=== PATIENT | female | born 1995 | race Caucasian/White ===

== ENCOUNTER 2023-03-13 19:52 | Emergency (ER) | payer OTHER ==
[2023-03-13 20:20] VITALS: RESP 20
[2023-03-13] MEDS ORDERED: OXcarbazepine 300 MG TAB PO STA ×2 (20:54)
--- NOTE | 2023-03-13 20:56 | ED ---
Seizure HPI - General Chief Complaint: Seizure Stated Complaint: Seizure Time Seen by Provider: 03/13/23 20:42 Source: patient, RN notes reviewed, old records reviewed Mode of arrival: EMS Limitations: altered mental status - History of Present Illness Initial Comments: This is a 27-year-old female here today for seizure. Patient had seizure with history of seizures, this is patient's normal seizure, no focal issue, to change in medications. No drugs or abuse. Patient denies noncompliance.. Patient does have again seizure history and has had seizures neck since of one per day for the last few days that she has been off of her at home medication for seizures. Patient does take Trileptal. Currently no complaints MD Complaint: seizure -: hour(s) Description of Episode: loss of consciousness, tonic-clonic movement -: second(s) Witnessed: yes - by bystander Trauma: Yes Seizure History: known seizure disorder Place: home Possible Precipitating Event: none Associated Symptoms: denies other symptoms - Related Data Previous Rx's Medication Instructions Recorded Citalopram Hydrobromide [CeleXA] 30 mg PO HS@2100 #30 tab 09/30/22 OXcarbazepine [Trileptal] 300 mg PO BID@0900,1700 #60 tab 09/30/22 Paliperidone IM [Invega Sustenna] 234 mg IM ONCE #1.5 ml 09/30/22 risperiDONE [RisperDAL] 1 mg PO DAILY #30 tab 09/30/22 risperiDONE [RisperDAL] 2 mg PO DAILY@1600 #30 tab 09/30/22 OXcarbazepine [Trileptal] 300 mg PO BID #180 tablet 03/13/23 Allergies Allergy/AdvReac Type Severity Reaction Status Date / Time sertraline [From Zoloft] AdvReac Rash/Hives Verified 03/13/23 20:20 Review of Systems ROS Statement: Those systems with pertinent positive or pertinent negative responses have been documented in the HPI. ROS Other: All systems not noted in ROS Statement are negative. Past Medical History Past Medical History: Seizure Disorder Past Psychological History: Bipolar Smoking Status: Second hand smoke exposure Past Alcohol Use History: None Reported Past Drug Use History: None Reported General Exam Limitations: altered mental status General appearance: alert, in no apparent distress Head exam: Present: atraumatic, normocephalic, normal inspection Eye exam: Present: normal appearance, PERRL, EOMI. Absent: scleral icterus, conjunctival injection, periorbital swelling ENT exam: Present: normal exam, mucous membranes moist Neck exam: Present: normal inspection. Absent: tenderness, meningismus, lymphadenopathy Respiratory exam: Present: normal lung sounds bilaterally. Absent: respiratory distress, wheezes, rales, rhonchi, stridor Cardiovascular Exam: Present: regular rate, normal rhythm, normal heart sounds. Absent: systolic murmur, diastolic murmur, rubs, gallop, clicks GI/Abdominal exam: Present: soft, normal bowel sounds. Absent: distended, tenderness, guarding, rebound, rigid Extremities exam: Present: normal inspection, full ROM, normal capillary refill. Absent: tenderness, pedal edema, joint swelling, calf tenderness Back exam: Present: normal inspection Neurological exam: Present: alert, oriented X3, CN II-XII intact Psychiatric exam: Present: normal affect, normal mood Skin exam: Present: warm, dry, intact, normal color. Absent: rash Course Vital Signs 03/13/23 03/13/23 20:15 21:26 Temperature 98.2 F 98.4 F Pulse Rate 90 84 Respiratory 20 20 Rate Blood Pressure 103/61 108/72 O2 Sat by Pulse 96 97 Oximetry - Reevaluation(s) Reevaluation #1: 03/13/23 23:23 Medical records reviewed Reevaluation #2: 03/13/23 23:24 Patient symptoms are improved 03/13/23 23:24 No recurrent seizures Reevaluation #3: 03/13/23 23:24 Patient informed results questions answered Reevaluation #4: 03/13/23 23:24 Was pt. sent in by a medical professional or institution? @ -no Did you speak to anyone other than the patient for history? @ -no Did you review nursing and triage notes? @ -agree Were old charts reviewed? @ -yes Differential Diagnosis? @ -prior EKG interpreted by me (3pts min.)? @ -no X-rays interpreted by me (1pt min.)? @ -no CT interpreted by me (1pt min.)? @ -no U/S interpreted by me (1pt. min.)? @ -no What testing was considered but not performed? (CT, X-rays, U/S, labs)? Why? @ -no What meds were considered but not given? Why? @ -no Did you discuss the management of the patient with other professionals? @ -no Did you reconcile home meds? @ -no Was smoking cessation discussed for >3mins.? @ -no Was critical care preformed (if so, how long)? @ -no Were there social determinants of health that impacted care today? How? (Homelessness, low income, unemployed, alcoholism, drug addiction, transportation, low edu. Level, literacy, decrease access to med. care, group home, rehab)? @ -no Was there de-escalation of care discussed even if they declined? (Discuss DNR or withdrawal of care, Hospice)? @ -no What co-morbidities impacted this encounter? (DM, HTN, Smoking, COPD, CAD, Cancer, CVA, Hep., AIDS, mental health diagnosis, sleep apnea, morbid obesity)? @ -none Was patient admitted / discharged? @ -27 female with seizures, history of seizures, no recurrent seizure here in the emergency department restarted on Trileptal and can be discharged home Discharge Undiagnosed new problem with uncertain prognosis? @ -no Drug Therapy requiring intensive monitoring for toxicity (Heparin, Nitro, Insulin, Cardizem)? @ -no Were any procedures done? @ -no Diagnosis/symptom? @ -Recurrent seizures Acute, or Chronic, or Acute on Chronic? @ -acute Uncomplicated (without systemic symptoms) or Complicated (systemic symptoms)? @ -complicated Side effects of treatment? @ -no Exacerbation, Progression, or Severe Exacerbation] @ -no Poses a threat to life or bodily function? @ -yes if status epilepticus Reevaluation #5: 03/13/23 23:24 Differential Seizure: Recurrent seizure disorder, febrile seizure, alcohol withdrawal, stimulants, meningitis, encephalitis, intercranial hemorrhage, intracranial tumor, stroke, eclampsia, thyrotoxicosis, hypocalcemia, hyponatremia, hypernatremia, hypomagnesemia, psychogenic, this is not meant to be an all-inclusive list. Medical Decision Making - Medical Decision Making 27 female with seizures, history of seizures, no recurrent seizure here in the emergency department restarted on Trileptal and can be discharged home Disposition Clinical Impression: Seizure, Intractable seizure disorder, Recurrent seizures Disposition: ADMITTED IP TO THIS HOSP Condition: Good Instructions (If sedation given, give patient instructions): Seizure/Epilepsy Discharge Instructions & Follow-Up, Recurrent Seizures in Adults (ED) Prescriptions: OXcarbazepine [Trileptal] 300 mg PO BID #180 tablet Is patient prescribed a controlled substance at d/c from ED?: No Referrals: Alysha Raymond MD [Primary Care Provider] - 1-2 days Time of Disposition: 20:55
[2023-03-13 21:28] VITALS: BP 108/72; PULSE 84; TEMP 98.4
== END 2023-03-13 21:28 | disposition other institution (70) ==
LOC: EC 19:52
DX: G40.919 Epilepsy, unspecified, intractable, without status epilepticus (principal); Z77.22 Contact with and (suspected) exposure to environmental tobacco smoke (acute) (chronic); Z88.9 Allergy status to unspecified drugs, medicaments and biological substances
CPT/HCPCS: 99285

== ENCOUNTER 2023-05-27 23:53 | Emergency (ER) | payer OTHER ==
[2023-05-28] MEDS ORDERED: ACETAMINOPHEN TAB 500 MG TAB PO STA ×2 (02:24→02:25)
--- NOTE | 2023-05-28 02:25 | ED ---
General Adult HPI - General Chief complaint: Extremity Injury, Lower Stated complaint: Ankle injury Time Seen by Provider: 05/28/23 01:59 Source: EMS Mode of arrival: EMS Limitations: no limitations - History of Present Illness Initial comments: Patient is a 27-year-old patient who presents to the emergency department for ankle injury. Patient twisted her ankle while walking down some steps this evening. She did not fall or hit her head. She has mild pain to the outside of her ankle. No pain with ambulation. No numbness or tingling. - Related Data Previous Rx's Medication Instructions Recorded Citalopram Hydrobromide [CeleXA] 30 mg PO HS@2100 #30 tab 09/30/22 OXcarbazepine [Trileptal] 300 mg PO BID@0900,1700 #60 tab 09/30/22 Paliperidone IM [Invega Sustenna] 234 mg IM ONCE #1.5 ml 09/30/22 risperiDONE [RisperDAL] 1 mg PO DAILY #30 tab 09/30/22 risperiDONE [RisperDAL] 2 mg PO DAILY@1600 #30 tab 09/30/22 OXcarbazepine [Trileptal] 300 mg PO BID #180 tablet 03/13/23 Ibuprofen [Motrin] 600 mg PO Q6HR PRN #30 tab 05/28/23 Allergies Allergy/AdvReac Type Severity Reaction Status Date / Time sertraline [From Zoloft] AdvReac Rash/Hives Verified 05/28/23 00:10 Review of Systems ROS Statement: Those systems with pertinent positive or pertinent negative responses have been documented in the HPI. ROS Other: All systems not noted in ROS Statement are negative. Past Medical History Past Medical History: Seizure Disorder History of Any Multi-Drug Resistant Organisms: None Reported Past Surgical History: No Surgical Hx Reported Past Psychological History: Bipolar Smoking Status: Second hand smoke exposure Past Alcohol Use History: None Reported Past Drug Use History: None Reported General Exam Limitations: no limitations General appearance: alert Eye exam: Present: normal appearance, PERRL, EOMI. Absent: scleral icterus, conjunctival injection, periorbital swelling Respiratory exam: Present: normal lung sounds bilaterally. Absent: respiratory distress, wheezes, rales, rhonchi, stridor Cardiovascular Exam: Present: regular rate, normal rhythm, normal heart sounds. Absent: systolic murmur, diastolic murmur, rubs, gallop, clicks Extremities exam: Present: other (Swelling lateral right ankle with tenderness full range of motion no pain with range of motion. Neurovascularly intact) Neurological exam: Present: alert Course Vital Signs 05/28/23 05/28/23 00:08 03:01 Temperature 97.8 F 98.2 F Pulse Rate 82 85 Respiratory 18 17 Rate Blood Pressure 127/76 102/70 O2 Sat by Pulse 98 Oximetry Medical Decision Making - Medical Decision Making Was pt. sent in by a medical professional or institution (STEFANIE Gage, MIXING PICKER TENDER, urgent care, hospital, or [facility]...) When possible be specific @ -No Did you speak to anyone other than the patient for history (EMS, parent, family, police, friend...)? What history was obtained from this source @ -No Did you review nursing and triage notes (agree or disagree)? Why? @ -I reviewed and agree with nursing and triage notes Were old charts reviewed (outside hosp., previous admission, EMS record, old EKG, old radiological studies, urgent care reports/EKG's, [facility] records)? Report findings @ -No old charts were reviewed Differential Diagnosis (chest pain, altered mental status, abdominal pain women, abdominal pain men, vaginal bleeding, weakness, fever, dyspnea, syncope, headache, dizziness, GI bleed, back pain, seizure, CVA, palpatations, mental health)? @ -fracture, dislocation, sprain EKG interpreted by me (3pts min.). @ -As above X-rays interpreted by me (1pt min.). @ -None done CT interpreted by me (1pt min.). @ -None done U/S interpreted by me (1pt. min.). @ -None done What testing was considered but not performed or refused? (CT, X-rays, U/S, labs)? Why? @ -None What meds were considered but not given or refused? Why? @Patient declined crutches states she has not had pain with ambulation Did you discuss the management of the patient with other professionals (professionals i.e. STEFANIE Gage, MIXING PICKER TENDER, lab, RT, psych nurse, social worker masters, station gateman, teacher, textile technical officer, case management coordinator)? Give summary @ -No Was smoking cessation discussed for >3mins.? @ -No Was critical care preformed (if so, how long)? @ -No Were there social determinants of health that impacted care today? How? (Homelessness, low income, unemployed, alcoholism, drug addiction, transportation, low edu. Level, literacy, decrease access to med. care, shelter, rehab)? @ -No Was there de-escalation of care discussed even if they declined (Discuss DNR or withdrawal of care, Hospice)? DNR status @ -No What co-morbidities impacted this encounter? (DM, HTN, Smoking, COPD, CAD, Cancer, CVA, ARF, Chemo, Hep., AIDS, mental health diagnosis, sleep apnea, morbid obesity)? @ -None Was patient admitted / discharged? Hospital course, mention meds given and route, prescriptions, significant lab abnormalities, going to OR and other pertinent info. @ -27-year-old presents at the right ankle injury. X-ray interpreted by myself shows no acute fracture dislocation. Patient placed in splint for ankle sprain discussed sprain care in detail issue. She is discharged with pain management and will follow up with her primary care provider. Undiagnosed new problem with uncertain prognosis? @ -No Drug Therapy requiring intensive monitoring for toxicity (Heparin, Nitro, Insulin, Cardizem)? @ -No Were any procedures done? @ -No Diagnosis/symptom? @ Right ankle sprain Acute, or Chronic, or Acute on Chronic? @ Acute Uncomplicated (without systemic symptoms) or Complicated (systemic symptoms)? @ -Uncomplicated Side effects of treatment? @ -No Exacerbation, Progression, or Severe Exacerbation? @ -No Poses a threat to life or bodily function? How? (Chest pain, [place], [place], pneumonia, PE, COPD, DKA, ARF, appy, cholecystitis, CVA, Diverticulitis, Homicidal, Suicidal, threat to staff... and all critical care pts) @ -No Ck Gamez is my attending Disposition Clinical Impression: Right ankle sprain Disposition: HOME SELF-CARE Condition: Good Instructions (If sedation given, give patient instructions): Ankle Sprain (ED) Additional Instructions: Rest and elevate the joint as much as possible. Ice the injury for the next 24- 48 hours. If symptoms continue after, apply warm compress. Take Tylenol or Motrin as needed for pain. Keep splint on until resolution of pain. Follow-up with primary care provider in 1 to 2 days. Return to the emergency department if you experience new, concerning, or worsening symptoms. Prescriptions: Ibuprofen [Motrin] 600 mg PO Q6HR PRN #30 tab PRN Reason: Pain Is patient prescribed a controlled substance at d/c from ED?: No Referrals: Alysha Raymond MD [Primary Care Provider] - 1-2 days
[2023-05-28 03:08] VITALS: BP 102/70; PULSE 85; RESP 17; TEMP 98.2
--- NOTE | 2023-05-28 04:07 | XR ---
EXAM: XR Right Ankle Complete, 3 or More Views CLINICAL HISTORY: ITS.REASON XR Reason: pain TECHNIQUE: Frontal, lateral and oblique views of the right ankle. COMPARISON: No relevant prior studies available. IMPRESSION: No acute fracture. No grossly evident malalignment. Marked soft tissue edema particularly laterally.
== END 2023-05-28 03:04 | disposition home or self-care (01) ==
LOC: EC 23:53
DX: S93.401A Sprain of unspecified ligament of right ankle, initial encounter (principal); F31.9 Bipolar disorder, unspecified; Z77.22 Contact with and (suspected) exposure to environmental tobacco smoke (acute) (chronic); Z79.899 Other long term (current) drug therapy; Z88.5 Allergy status to narcotic agent; X50.1XXA Overexertion from prolonged static or awkward postures, initial encounter; Y93.01 Activity, walking, marching and hiking
CPT/HCPCS: 73610; 99284; L4350

== ENCOUNTER 2023-10-01 21:53 | Emergency (ER) | payer OTHER ==
[2023-10-01] MEDS ORDERED: SODIUM CHLORIDE 0.9% 1,000 ML IV ONE (22:10)
[2023-10-01 22:20] VITALS: RESP 16
--- NOTE | 2023-10-01 22:23 | ED ---
Seizure HPI - General Chief Complaint: Seizure Stated Complaint: Seizure Source: patient, EMS Mode of arrival: EMS - History of Present Illness Initial Comments: 28-year-old female presents the emergency department after having a seizure at home. She does have a history of seizure disorder and is on antiepileptics. She is 6 months . Reports that she has not been taking her seizure medications. She has had several seizures today which caused her to bite her tongue. States that she did not take her seizure medications this evening because her tongue was hurting. She states that her neurologist know she is . She denies any abdominal cramping or bleeding. She was agitated and combative at the house. She was refusing transfer and stated that she did not want to come to the hospital. She still seemed confused and therefore EMS was able to transport the patient. She arrives alert and oriented x 3 and refusing any blood work. Refusing to answer any questions. - Related Data Previous Rx's Medication Instructions Recorded Citalopram Hydrobromide [CeleXA] 30 mg PO HS@2100 #30 tab 09/30/22 OXcarbazepine [Trileptal] 300 mg PO BID@0900,1700 #60 tab 09/30/22 Paliperidone IM [Invega Sustenna] 234 mg IM ONCE #1.5 ml 09/30/22 risperiDONE [RisperDAL] 1 mg PO DAILY #30 tab 09/30/22 risperiDONE [RisperDAL] 2 mg PO DAILY@1600 #30 tab 09/30/22 OXcarbazepine [Trileptal] 300 mg PO BID #180 tablet 03/13/23 Ibuprofen [Motrin] 600 mg PO Q6HR PRN #30 tab 05/28/23 Allergies Allergy/AdvReac Type Severity Reaction Status Date / Time sertraline [From Zoloft] AdvReac Rash/Hives Verified 05/28/23 00:10 Review of Systems ROS Statement: Those systems with pertinent positive or pertinent negative responses have been documented in the HPI. ROS Other: All systems not noted in ROS Statement are negative. Past Medical History Past Medical History: Seizure Disorder History of Any Multi-Drug Resistant Organisms: None Reported Past Surgical History: No Surgical Hx Reported Past Psychological History: Bipolar Smoking Status: Second hand smoke exposure Past Alcohol Use History: None Reported Past Drug Use History: None Reported General Exam General appearance: alert, in no apparent distress Head exam: Present: atraumatic, normocephalic, normal inspection Eye exam: Present: normal appearance, PERRL, EOMI. Absent: scleral icterus, conjunctival injection, periorbital swelling ENT exam: Present: normal exam, mucous membranes moist Neck exam: Present: normal inspection. Absent: tenderness, meningismus, lymphadenopathy Respiratory exam: Present: normal lung sounds bilaterally. Absent: respiratory distress, wheezes, rales, rhonchi, stridor Cardiovascular Exam: Present: regular rate, normal rhythm, normal heart sounds. Absent: systolic murmur, diastolic murmur, rubs, gallop, clicks GI/Abdominal exam: Present: soft, normal bowel sounds, other (Gravid). Absent: distended, tenderness, guarding, rebound, rigid Extremities exam: Present: normal inspection, full ROM, normal capillary refill. Absent: tenderness, pedal edema, joint swelling, calf tenderness Back exam: Present: normal inspection Neurological exam: Present: alert, oriented X3, CN II-XII intact Psychiatric exam: Present: normal affect, normal mood Skin exam: Present: warm, dry, intact, normal color. Absent: rash Course Vital Signs 10/01/23 21:55 Respiratory 16 Rate Medical Decision Making - Medical Decision Making Was pt. sent in by a medical professional or institution (STEFANIE Gage, BUSINESS PROCESS ENGINEER, urgent care, hospital, or alf...) When possible be specific @ -No Did you speak to anyone other than the patient for history (EMS, parent, family, police, friend...)? What history was obtained from this source @ -EMS Did you review nursing and triage notes (agree or disagree)? Why? @ -I reviewed and agree with nursing and triage notes Were old charts reviewed (outside hosp., previous admission, EMS record, old EKG, old radiological studies, urgent care reports/EKG's, alf records)? Report findings @ -No old charts were reviewed Differential Diagnosis (chest pain, altered mental status, abdominal pain women, abdominal pain men, vaginal bleeding, weakness, fever, dyspnea, syncope, hea dache, dizziness, GI bleed, back pain, seizure, CVA, palpatations, mental health, musculoskeletal)? @ -Differential Seizure: Recurrent seizure disorder, febrile seizure, alcohol withdrawal, stimulants, meningitis, encephalitis, intercranial hemorrhage, intracranial tumor, stroke, eclampsia, thyrotoxicosis, hypocalcemia, hyponatremia, hypernatremia, hypomagnesemia, psychogenic, this is not meant to be an all-inclusive list. EKG interpreted by me (3pts min.). @ -As above X-rays interpreted by me (1pt min.). @ -None done CT interpreted by me (1pt min.). @ -None done U/S interpreted by me (1pt. min.). @ -None done What testing was considered but not performed or refused? (CT, X-rays, U/S, labs)? Why? @ -Laboratory studies and urine however patient refused. Patient is awake, alert and oriented x 3. She is no longer postictal and able to refuse these tests What meds were considered but not given or refused? Why? @ -Antiseizure medications Did you discuss the management of the patient with other professionals (professionals i.e. , PA, BUSINESS PROCESS ENGINEER, lab, RT, psych nurse, clinical social work aide, desktop technician, teacher, sports development officer, spring encaser)? Give summary @ -CPS as I am concerned about the patient's unborn child Was smoking cessation discussed for >3mins.? @ -No Was critical care preformed (if so, how long)? @ -No Were there social determinants of health that impacted care today? How? (H omelessness, low income, unemployed, alcoholism, drug addiction, transportation, low edu. Level, literacy, decrease access to med. care, detention, rehab)? @ -Low literacy as patient does not seem to understand the importance of the seizure medications in Was there de-escalation of care discussed even if they declined (Discuss DNR or withdrawal of care, Hospice)? DNR status @ -No What co-morbidities impacted this encounter? (DM, HTN, Smoking, COPD, CAD, Cancer, CVA, ARF, Chemo, Hep., AIDS, mental health diagnosis, sleep apnea, morbid obesity)? @ -Seizure disorder Was patient admitted / discharged? Hospital course, mention meds given and route, prescriptions, significant lab abnormalities, going to OR and other pertinent info. @ -Discharged AGAINST MEDICAL ADVICE. Patient presents alert and oriented x 3. She is out of her postictal phase. She admits that she has not been taking her seizure medications. Patient is refusing all blood work and IV had been taken out which was placed by EMS. I informed the patient of the importance of needing her seizure medications especially while . Informed her of the severe risks of having continued seizures while and the effects of the unborn baby. Patient understood this however continued to refuse any further testing and wanted to leave. I do not feel as if I can force the testing upon the patient however I do feel that it is important to fill out a 3200 form as I am concerned about the decisions that the mother is making. The nurse does fill out the paperwork. The patient is allowed to leave however she is notified that she is leaving AGAINST MEDICAL ADVICE. This could lead to permanent disability and even . Patient understood however still made the decision to leave Undiagnosed new problem with uncertain prognosis? @ -Yes Drug Therapy requiring intensive monitoring for toxicity (Heparin, Nitro, Insulin, Cardizem)? @ -No Were any procedures done? @ -No Diagnosis/symptom? @ -Acute breakthrough seizure, history of seizure disorder, medical noncompliance, -second versus third trimester Acute, or Chronic, or Acute on Chronic? @ -Acute Uncomplicated (without systemic symptoms) or Complicated (systemic symptoms)? @ -Complicated Side effects of treatment? @ -No Exacerbation, Progression, or Severe Exacerbation? @ -No Poses a threat to life or bodily function? How? (Chest pain, [place], [place], pneumonia, PE, COPD, DKA, ARF, appy, cholecystitis, CVA, Diverticulitis, Homicidal, Suicidal, threat to staff... and all critical care pts) @Yes the patient's decision to not take her antiepileptics could have poor outcome for her and her child Disposition Clinical Impression: Seizure, Second trimester Disposition: LEFT AGAINST MEDICAL ADVICE Condition: Undetermined Instructions (If sedation given, give patient instructions): Recurrent Seizures in Adults (ED) Additional Instructions: Take your seizure medications. See your neurologist. You are leaving against medical advice Is patient prescribed a controlled substance at d/c from ED?: No Referrals: Kenny Feng DO [Primary Care Provider] - 1-2 days Time of Disposition: 22:22
== END 2023-10-01 23:27 | disposition left against medical advice (07) ==
LOC: EC 21:53
DX: O99.352 Diseases of the nervous system complicating pregnancy, second trimester (principal); G40.909 Epilepsy, unspecified, not intractable, without status epilepticus; Z77.22 Contact with and (suspected) exposure to environmental tobacco smoke (acute) (chronic); Z88.8 Allergy status to other drugs, medicaments and biological substances; Z3A.00 Weeks of gestation of pregnancy not specified; Z53.29 Procedure and treatment not carried out because of patient's decision for other reasons
CPT/HCPCS: 99283

== ENCOUNTER → 2023-10-07 | Outpatient (CLI) | payer OTHER ==
--- NOTE | 2023-10-07 22:00 | US ---
EXAMINATION TYPE: US OB anatomy transabd DATE OF EXAM: 10/07/2023 COMPARISON: NONE CLINICAL INDICATION: Female, 28 years old with history of Z34.90 ENCNTR FOR SUPRVSN OF NORMAL PREGNAN CY, UNS; TECHNIQUE: Transabdominal (TA) EXAM MEASUREMENTS: GESTATIONAL AGE / DATING Physician Established: (Patient does not know EDC: Dates by LMP: (Patient does not know EDC: Dates by First Scan: (This is first scan ) EDC: Dates by Current Scan for: (25 weeks/2 days) EDC: 01/18/2024 SURVEY IUP: Single PLACENTA: Posterior PREVIA: No previa PETER: 15.15 cm Normal CERVICAL LENGTH (transabdominal: norm > 3.0cm): 5.1 cm BIOMETRY PRESENTATION: Vertex LIE: Longitudinal BPD: 6.33 cm 25 weeks / 4 days HC: 23.68 cm 25 weeks / 5 days AC: 21.76 cm 26 weeks / 2 days FL: 4.58 cm 25 weeks / 1 days ESTIMATED WEIGHT IN GRAMS: 852 grams ESTIMATED WEIGHT IN LBS/OZ: 1 lbs. 14 oz. WEIGHT PERCENTAGE BASED ON ESTABLISHED DATE: NA HC/AC: 1.09 Normal FL/AC: 21.07 Normal HEART RATE: 145 bpm RHYTHM: Normal ANATOMY SEEN (within normal limits): Lateral Vent (< 1 cm) 0.59 cm Cisterna Magna (< 1.1 cm) 0.42 cm Nuchal Fold (< 0.6 cm) 0.40 cm Cerebellum (varies with age) 2.83 cm Choroid Plexus (bilateral) Midline Falx Cavus Septi Pellucidi Stomach Nose / Lips Diaphragm Kidneys (bilateral) Bladder Three Vessel Cord Longitudinal Spine Transverse Spine Arms (bilateral) Legs (bilateral) ANATOMY NOT WELL SEEN (due to position and crowded structures): Four Chamber Heart Outflow tracts: LVOT/RVOT Situs Cord Insert IMPRESSION: 1. Single live intrauterine with average gestational age of 25 weeks 2 days by current ultr asound biometry. LMP and estimated gestational age not known by the patient. 2. A few of the structures on the survey could not be adequately imaged due to positionin g and crowding of structures including: Four-chamber heart, situs, LVOT/RVOT, and cord insertion. The remaining structures appear normal. If desired, a rescan can be scheduled in 1 to 2 weeks to attempt better visualization of this missed anatomy.
== END | disposition home or self-care (01) ==
LOC: RADUSWWP 12:42
PROVIDERS: ATTEND Obstetrics & Gynecology
DX: Z34.92 Encounter for supervision of normal pregnancy, unspecified, second trimester (principal); Z3A.36 36 weeks gestation of pregnancy
CPT/HCPCS: 76811

== ENCOUNTER 2023-11-13 04:52 | Emergency (ER) | payer OTHER ==
--- NOTE | 2023-11-13 05:32 | ED ---
General Adult HPI - General Chief complaint: Seizure Stated complaint: Dizziness possible seizure 30 weeks Time Seen by Provider: 11/13/23 05:18 Source: patient Mode of arrival: wheelchair Limitations: no limitations - History of Present Illness Initial comments: Chest is a 28-year-old female currently 30 weeks . She has a history of seizure disorder for which she is prescribed Trileptal. She reports that she was not taking the medication for a while recently she started taking again a couple days ago she missed a couple days or couple doses but she has been trying to be compliant for the past couple of days. She reports she has had 8 seizures in the past 24 hours. Patient states that she has frequent seizures but thought she should get herself and the baby checked out today. - Related Data Previous Rx's Medication Instructions Recorded Citalopram Hydrobromide [CeleXA] 30 mg PO HS@2100 #30 tab 09/30/22 OXcarbazepine [Trileptal] 300 mg PO BID@0900,1700 #60 tab 09/30/22 Paliperidone IM [Invega Sustenna] 234 mg IM ONCE #1.5 ml 09/30/22 risperiDONE [RisperDAL] 1 mg PO DAILY #30 tab 09/30/22 risperiDONE [RisperDAL] 2 mg PO DAILY@1600 #30 tab 09/30/22 OXcarbazepine [Trileptal] 300 mg PO BID #180 tablet 03/13/23 Ibuprofen [Motrin] 600 mg PO Q6HR PRN #30 tab 05/28/23 Allergies Allergy/AdvReac Type Severity Reaction Status Date / Time sertraline [From Zoloft] AdvReac Rash/Hives Verified 11/13/23 05:15 Review of Systems ROS Statement: Those systems with pertinent positive or pertinent negative responses have been documented in the HPI. ROS Other: All systems not noted in ROS Statement are negative. Past Medical History Past Medical History: Seizure Disorder History of Any Multi-Drug Resistant Organisms: None Reported Past Surgical History: No Surgical Hx Reported Past Psychological History: Bipolar Smoking Status: Second hand smoke exposure Past Alcohol Use History: None Reported Past Drug Use History: None Reported General Exam - General Exam Comments Initial Comments: Physical Exam GENERAL: Patient is well-developed and well-nourished. Patient is nontoxic and well-hydrated and is in no distress. HENT: Normocephalic, Atraumatic. EYES: PERRL, EOMI PULMONARY: Unlabored respirations. CARDIOVASCULAR: Tachycardic regular Warm and well perfused extremities ABDOMEN: Gravid SKIN: Pale : Deferred NEUROLOGIC: Alert and oriented Normal speech MUSCULOSKELETAL: Moving all extremities with no apparent injury PSYCHIATRIC: No SI/HI Limitations: no limitations Course Vital Signs 11/13/23 11/13/23 05:11 05:42 Temperature 98 F Pulse Rate 136 H 129 H Respiratory 22 24 Rate Blood Pressure 127/80 110/69 O2 Sat by Pulse 97 100 Oximetry Medical Decision Making - Medical Decision Making Was pt. sent in by a medical professional or institution (, PA, BOOM TRUCK DRIVER, urgent care, hospital, or [facility]...) When possible be specific @ -No Did you speak to anyone other than the patient for history (EMS, parent, family, police, friend...)? What history was obtained from this source @ -Patient's significant other Did you review nursing and triage notes (agree or disagree)? Why? @ -I reviewed and agree with nursing and triage notes Were old charts reviewed (outside hosp., previous admission, EMS record, old EKG, old radiological studies, urgent care reports/EKG's, [facility] records)? Report findings @ -Previous ER visits were reviewed Differential Diagnosis (chest pain, altered mental status, abdominal pain women, abdominal pain men, vaginal bleeding, weakness, fever, dyspnea, syncope, headache, dizziness, GI bleed, back pain, seizure, CVA, palpatations, mental health)? @ -Differential Seizure: Recurrent seizure disorder, febrile seizure, alcohol withdrawal, stimulants, meningitis, encephalitis, intercranial hemorrhage, intracranial tumor, stroke, eclampsia, thyrotoxicosis, hypocalcemia, hyponatremia, hypernatremia, hypomagnesemia, psychogenic, this is not meant to be an all-inclusive list. EKG interpreted by me (3pts min.). @ -As above X-rays interpreted by me (1pt min.). @ -None done CT interpreted by me (1pt min.). @ -None done U/S interpreted by me (1pt. min.). @ -None done What testing was considered but not performed or refused? (CT, X-rays, U/S, labs)? Why? @ -None What meds were considered but not given or refused? Why? @ -None Did you discuss the management of the patient with other professionals (professionals i.e. DrLydia, PA, BOOM TRUCK DRIVER, lab, RT, psych nurse, social professionals, actuarial director, teacher, inshore undersea warfare officer, pillowcase maker)? Give summary @ -Discussed with on-call OB Dr. Knowles Was smoking cessation discussed for >3mins.? @ -No Was critical care preformed (if so, how long)? @ -No Were there social determinants of health that impacted care today? How? (Homelessness, low income, unemployed, alcoholism, drug addiction, transportation, low edu. Level, literacy, decrease access to med. care, [facility], rehab)? @ -Low education level, low literacy Was there de-escalation of care discussed even if they declined (Discuss DNR or withdrawal of care, Hospice)? DNR status @ -No What co-morbidities impacted this encounter? (DM, HTN, Smoking, COPD, CAD, Cancer, CVA, ARF, Chemo, Hep., AIDS, mental health diagnosis, sleep apnea, morbid obesity)? @ -Seizure disorder Was patient admitted / discharged? Hospital course, mention meds given and route, prescriptions, significant lab abnormalities, going to OR and other pertinent info. @Discharged Patient was seen and evaluated. Patient with known seizure disorder noncompliant with antiepileptics had multiple seizures today. Is awake alert oriented not postictal upon arrival. Labs were obtained patient is mildly hypokalemic no other significant abnormalities were noted. Care was discussed with on-call OB who recommended NST bedside NST was performed and is normal therefore patient is stable for discharge home continued outpatient follow-up with her high worker and her neurologist. Undiagnosed new problem with uncertain prognosis? @ -No Drug Therapy requiring intensive monitoring for toxicity (Heparin, Nitro, Insulin, Cardizem)? @ -No Were any procedures done? @ -No Diagnosis/symptom? @ -Seizure Acute, or Chronic, or Acute on Chronic? @ -Default Uncomplicated (without systemic symptoms) or Complicated (systemic symptoms)? @ -Complicated Side effects of treatment? @ -No Exacerbation, Progression, or Severe Exacerbation? @ -No Poses a threat to life or bodily function? How? (Chest pain, USA, DC, pneumonia, PE, COPD, DKA, ARF, appy, cholecystitis, CVA, Diverticulitis, Homicidal, Suicidal, threat to staff... and all critical care pts) @ -Yes Diagnosis/symptom? @ -Third trimester Acute, or Chronic, or Acute on Chronic? @ -Default Uncomplicated (without systemic symptoms) or Complicated (systemic symptoms)? @ -Default Side effects of treatment? @ -None Exacerbation, Progression, or Severe Exacerbation] @ -No Poses a threat to life or bodily function? @ -No - Lab Data Result diagrams: 11/13/23 05:49 11/13/23 05:49 Lab Results 11/13/23 11/13/23 Range/Units 05:49 05:49 WBC 8.5 (3.8-10.6) k/uL RBC 4.13 (3.80-5.40) m/uL Hgb 9.1 L (11.4-16.0) gm/dL Hct 28.8 L (34.0-46.0) % MCV 69.9 L (80.0-100.0) fL MCH 22.0 L (25.0-35.0) pg MCHC 31.5 (31.0-37.0) g/dL RDW 16.2 H (11.5-15.5) % Plt Count 240 (150-450) k/uL MPV 8.7 Neutrophils % 72 % Lymphocytes % 21 % Monocytes % 5 % Eosinophils % 1 % Basophils % 0 % Neutrophils # 6.1 (1.3-7.7) k/uL Lymphocytes # 1.8 (1.0-4.8) k/uL Monocytes # 0.4 (0-1.0) k/uL Eosinophils # 0.1 (0-0.7) k/uL Basophils # 0.0 (0-0.2) k/uL Hypochromasia Moderate Poikilocytosis Slight Anisocytosis Slight Microcytosis Marked Sodium 136 L (137-145) mmol/L Potassium 3.3 L (3.5-5.1) mmol/L Chloride 110 H (98-107) mmol/L Carbon Dioxide 19 L (22-30) mmol/L Anion Gap 7 mmol/L BUN 8 (7-17) mg/dL Creatinine 0.45 L (0.52-1.04) mg/dL Est GFR (CKD-EPI)AfAm >90 (>60 ml/min/1.73 sqM) Est GFR (CKD-EPI)NonAf >90 (>60 ml/min/1.73 sqM) Glucose 113 H (74-99) mg/dL Calcium 9.0 (8.4-10.2) mg/dL Magnesium 1.6 (1.6-2.3) mg/dL Total Bilirubin 0.7 (0.2-1.3) mg/dL AST 20 (14-36) U/L ALT 15 (4-34) U/L Alkaline Phosphatase 203 H (38-126) U/L Total Protein 6.0 L (6.3-8.2) g/dL Albumin 3.2 L (3.5-5.0) g/dL Disposition Clinical Impression: Seizure Disposition: HOME SELF-CARE Condition: Stable Instructions (If sedation given, give patient instructions): Recurrent Seizures in Adults (ED) Additional Instructions: Contact your OB and your neurologist to discuss the frequency of seizures Is patient prescribed a controlled substance at d/c from ED?: No Referrals: Alysha Raymond MD [Primary Care Provider] - 1-2 days
[2023-11-13 06:03] LABS: Anisocytosis Slight; Basophils % (A) 0 %; Eosinophils # (A) 0.1 k/uL (0-0.7); Eosinophils % (A) 1 %; HCT 28.8 % (34.0-46.0); HGB 9.1 gm/dL (11.4-16.0); Hypochromasia Moderate; Lymphocytes # (A) 1.8 k/uL (1.0-4.8); Lymphocytes % (A) 21 %; MCHC 31.5 g/dL (31.0-37.0); MCV 69.9 fL (80.0-100.0); Mean Platelet Volume 8.7; Microcytosis Marked; Monocytes # (A) 0.4 k/uL (0-1.0); Monocytes % (A) 5 %; Neutrophils # (A) 6.1 k/uL (1.3-7.7); Neutrophils % (A) 72 %; Platelet Count 240 k/uL (150-450); Poikilocytosis Slight; RBC 4.13 m/uL (3.80-5.40); RDW 16.2 % (11.5-15.5); WBC 8.5 k/uL (3.8-10.6)
[2023-11-13 06:19] LABS: ALT 15 U/L (4-34); AST 20 U/L (14-36); African American GFR (CKD) >90 (>60 ml/min/1.73 sqM); Albumin 3.2 g/dL (3.5-5.0); Alkaline Phosphatase 203 U/L (38-126); Anion Gap 7 mmol/L; Blood Urea Nitrogen 8 mg/dL (7-17); Carbon Dioxide 19 mmol/L (22-30); Chloride 110 mmol/L (98-107); Glucose 113 mg/dL (74-99); Magnesium 1.6 mg/dL (1.6-2.3); Non-African American GFR(CKD) >90 (>60 ml/min/1.73 sqM); Potassium 3.3 mmol/L (3.5-5.1); Sodium 136 mmol/L (137-145); Total Bilirubin 0.7 mg/dL (0.2-1.3)
[2023-11-13] MEDS: POTASSIUM CHLORIDE ER 20 MEQ TAB.ER PO STA (07:30)
[2023-11-13 07:41] VITALS: BP 118/79; PULSE 108; RESP 18; TEMP 98.1
== END 2023-11-13 07:36 | disposition home or self-care (01) ==
LOC: EC 04:52
DX: O99.353 Diseases of the nervous system complicating pregnancy, third trimester (principal); G40.909 Epilepsy, unspecified, not intractable, without status epilepticus; Z3A.30 30 weeks gestation of pregnancy; Z77.22 Contact with and (suspected) exposure to environmental tobacco smoke (acute) (chronic); Z88.8 Allergy status to other drugs, medicaments and biological substances
CPT/HCPCS: 36415; 80053; 83735; 85025; 99284

== ENCOUNTER 2025-01-15 02:55 | Emergency (ER) | payer OTHER ==
[2025-01-15 03:01] VITALS: BP 139/69; PULSE 146; RESP 18
--- NOTE | 2025-01-15 03:28 | ED ---
Seizure HPI - General Chief Complaint: Seizure Stated Complaint: Seizure Time Seen by Provider: 01/15/25 03:00 Source: EMS Mode of arrival: EMS Limitations: no limitations - History of Present Illness Initial Comments: 29-year-old female presents to the emergency department after 2 seizures at home. Patient has history of seizure disorder. EMS provide history. They state that the patient has history of seizure disorder and they are unsure if she is compliant with her seizure medications. She has a history of multiple breakthrough seizures. She is currently and in her third trimester. She must see a high lighter due to her breakthrough seizures. EMS bring in a bottle of Trileptal for which they state the patient is supposed to be taking however the medication several years ago and the bottle was still full. No family is at bedside to provide any history. EMS states that the patient typically refuses transport to the hospital. They state that the patient's family rarely ever calls for her seizures but because she had 2 of them so close the nature even after she was administered her rescue medication, they decided to have the patient transferred to the hospital. - Related Data Previous Rx's Medication Instructions Recorded Citalopram Hydrobromide [CeleXA] 30 mg PO HS@2100 #30 tab 09/30/22 OXcarbazepine [Trileptal] 300 mg PO BID@0900,1700 #60 tab 09/30/22 Paliperidone IM [Invega Sustenna] 234 mg IM ONCE #1.5 ml 09/30/22 risperiDONE [RisperDAL] 1 mg PO DAILY #30 tab 09/30/22 risperiDONE [RisperDAL] 2 mg PO DAILY@1600 #30 tab 09/30/22 OXcarbazepine [Trileptal] 300 mg PO BID #180 tablet 03/13/23 Ibuprofen [Motrin] 600 mg PO Q6HR PRN #30 tab 05/28/23 Allergies Allergy/AdvReac Type Severity Reaction Status Date / Time sertraline [From Zoloft] AdvReac Rash/Hives Verified 01/15/25 03:01 Review of Systems ROS Statement: Those systems with pertinent positive or pertinent negative responses have been documented in the HPI. ROS Other: All systems not noted in ROS Statement are negative. Past Medical History Past Medical History: Seizure Disorder History of Any Multi-Drug Resistant Organisms: None Reported Past Surgical History: No Surgical Hx Reported Past Psychological History: Bipolar Smoking Status: Second hand smoke exposure Past Alcohol Use History: None Reported Past Drug Use History: None Reported General Exam Limitations: altered mental status General appearance: other (Agitated) Head exam: Present: atraumatic, normocephalic, normal inspection Eye exam: Present: normal appearance, PERRL, EOMI. Absent: scleral icterus, conjunctival injection, periorbital swelling Respiratory exam: Present: normal lung sounds bilaterally. Absent: respiratory distress, wheezes, rales, rhonchi, stridor Cardiovascular Exam: Present: tachycardia GI/Abdominal exam: Present: soft, normal bowel sounds. Absent: distended, tenderness, guarding, rebound, rigid Neurological exam: Present: altered Psychiatric exam: Present: agitated Skin exam: Present: warm, dry, intact, normal color. Absent: rash Course Vital Signs 01/15/25 02:56 Pulse Rate 146 H Respiratory 18 Rate Blood Pressure 139/69 O2 Sat by Pulse 99 Oximetry Medical Decision Making - Medical Decision Making Was pt. sent in by a medical professional or institution (Dr. PA, ADULT REMEDIAL EDUCATION INSTRUCTOR, urgent care, hospital, or [facility]dc...) When possible be specific @ -No Did you speak to anyone other than the patient for history (EMS, parent, family, police, friend...)? What history was obtained from this source @ -Spoke with EMS for history Did you review nursing and triage notes (agree or disagree)? Why? @ -I reviewed and agree with nursing and triage notes Were old charts reviewed (outside hosp., previous admission, EMS record, old EKG, old radiological studies, urgent care reports/EKG's, [facility]dc records)? Report findings @ -I reviewed an H&P from September 2022 Differential Diagnosis (chest pain, altered mental status, abdominal pain women, abdominal pain men, vaginal bleeding, weakness, fever, dyspnea, syncope, headache, dizziness, GI bleed, back pain, seizure, CVA, palpatations, mental health, musculoskeletal)? @ -Differential Seizure: Recurrent seizure disorder, febrile seizure, alcohol withdrawal, stimulants, meningitis, encephalitis, intercranial hemorrhage, intracranial tumor, stroke, eclampsia, thyrotoxicosis, hypocalcemia, hyponatremia, hypernatremia, hypomagnesemia, psychogenic, this is not meant to be an all-inclusive list. EKG interpreted by me (3pts min.). @ -Attempted however patient ripped off all the EKG cords X-rays interpreted by me (1pt min.). @ -None done CT interpreted by me (1pt min.). @ -None done U/S interpreted by me (1pt. min.). @ -None done What testing was considered but not performed or refused? (CT, X-rays, U/S, labs)? Why? @ -Laboratory studies and toco monitoring of the baby however patient is refusing everything What meds were considered but not given or refused? Why? @ -None Did you discuss the management of the patient with other professionals (professionals i.e. Dr., PA, ADULT REMEDIAL EDUCATION INSTRUCTOR, lab, RT, psych nurse, social media community manager, hot stamp operator, teacher, v/stol landing signal officer, manager of case management)? Give summary @ -No Was smoking cessation discussed for >3mins.? @ -No Was critical care preformed (if so, how long)? @ -No Were there social determinants of health that impacted care today? How? (Homelessness, low income, unemployed, alcoholism, drug addiction, transportation, low edu. Level, literacy, decrease access to med. care, [facility], rehab)? @ -No Was there de-escalation of care discussed even if they declined (Discuss DNR or withdrawal of care, Hospice)? DNR status @ -No What co-morbidities impacted this encounter? (DM, HTN, Smoking, COPD, CAD, Cancer, CVA, ARF, Chemo, Hep., AIDS, mental health diagnosis, sleep apnea, morbid obesity)? @ -Seizure disorder Was patient admitted / discharged? Hospital course, mention meds given and route, prescriptions, significant lab abnormalities, going to OR and other pertinent info. @ -Upon arrival patient seen and evaluated in trauma 2. Thorough history and physical exam was performed. IV access had been established however patient did rip this out. We did attempt to obtain laboratory studies however patient is refusing. We tried to obtain toco monitoring of the baby however she refuses this as well. Patient is observed in the emergency department for 2 hours. Her significant other does present to the hospital. We did recommend laboratory studies, toco monitoring to ensure baby's health. We were unable to obtain heart tones. Patient's boyfriend states this is very typical behavior for the patient. She is extremely agitated after seizures and refuses all care even when out of the postictal state. When patient does become alert and oriented she continues to refuse all type of workup and wants to go home. She is aware of the risks of leaving without further workup including permanent disability and even of herself and her unborn baby. Patient is willing to accept these risks. Patient discharged against my advice Undiagnosed new problem with uncertain prognosis? @ -No Drug Therapy requiring intensive monitoring for toxicity (Heparin, Nitro, Insulin, Cardizem)? @ -No Were any procedures done? @ -No Diagnosis/symptom? @ -Acute breakthrough seizure, third trimester Acute, or Chronic, or Acute on Chronic? @ -Acute on chronic Uncomplicated (without systemic symptoms) or Complicated (systemic symptoms)? @ -Complicated Side effects of treatment? @ -No Exacerbation, Progression, or Severe Exacerbation? @ -No Poses a threat to life or bodily function? How? (Chest pain, USA, MD, pneumonia, PE, COPD, DKA, ARF, appy, cholecystitis, CVA, Diverticulitis, Homicidal, Suicidal, threat to staff... and all critical care pts) @ -Yes as patient is continuing to have multiple seizures throughout her with what appears to be little concern Disposition Clinical Impression: Seizure Disposition: LEFT AGAINST MEDICAL ADVICE Condition: Serious Instructions (If sedation given, give patient instructions): Recurrent Seizures in Adults (ED) Additional Instructions: There is a significant portion of testing that we wanted to complete that we were unable. You are leaving the hospital knowing that there could be permanent disability and even related to you or your unborn child. Is patient prescribed a controlled substance at d/c from ED?: No Referrals: Alysha Raymond MD [Primary Care Provider] - 1-2 days Time of Disposition: 03:28
== END 2025-01-15 04:33 | disposition left against medical advice (07) ==
LOC: EC 02:55
DX: O99.353 Diseases of the nervous system complicating pregnancy, third trimester (principal); G40.909 Epilepsy, unspecified, not intractable, without status epilepticus; Z77.22 Contact with and (suspected) exposure to environmental tobacco smoke (acute) (chronic); Z88.8 Allergy status to other drugs, medicaments and biological substances; Z3A.00 Weeks of gestation of pregnancy not specified; Z53.29 Procedure and treatment not carried out because of patient's decision for other reasons
CPT/HCPCS: 99283

== ENCOUNTER 2025-03-07 04:50 | Outpatient (CLI) | payer SELFPAY ==
[2025-03-07 06:56] VITALS: BP 129/73; PULSE 103; RESP 16; TEMP 98
--- NOTE | 2025-04-22 10:06 | P.MSEPDOC ---
Presenting Problems - Arrival Data Date of Arrival on Unit: 03/07/25 Time of Arrival on Unit: 04:50 Mode of Transport: Ambulatory - Complaint OB-Reason for Admission/Chief Complaint: Possible Onset of Labor Comment: pt. states contractions started about an hour ago Medical History - Information : 4 Para: 3 Term: 3 : 0 Abortions: Spontaneous or Elective: 0 Number of Living Children: 3 - Gestational Age Gestational Age by ANIA (wks/days): 40 Weeks and 1 Days - History Comment: noncompliant with care Review of Systems - Review of Systems Constitutional: No problems Breast: No problems ENT: No problems Cardiovascular: No problems Respiratory: No problems Gastrointestinal: No problems Genitourinary: No problems Musculoskeletal: No problems Neurological: No problems Skin: No problems Vital Signs - Temperature Temperature: 98.0 F Temperature Source: Temporal Artery Scan - Pulse Pulse Oximetery Pulse Rate: 103 Pulse Assessment Method: Automatic Cuff - Respirations Respiratory Rate: 16 Oxygen Delivery Method: Room Air O2 Sat by Pulse Oximetry: 100 - Blood Pressure Right Arm Blood Pressure: 129/73 Blood Pressure Mean: 91 Blood Pressure Source: Automatic Cuff Medical Screen Scoring - Uterine Contractions Frequency From (mins): 12 Frequency To (mins): 12 Duration From (seconds): 100 Duration To (seconds): 120 Intensity: Mild Resting: Soft to palpation - Assessment - Baby A Baseline FHR: 125 Heart Rate - NICHD Category: Category I (Normal) NST: Reactive Physician Notification - Physician Notified Physician Notified Date: 03/07/25 Physician Notified Time: 05:54 Physician: Mandy Jerry Order Received: Yes - Notification Comment Comment: discharge home and follow up with her OB. Maternal Triage Index - Maternal Triage Index Presenting for scheduled procedure w/no complaint: No - Stat/Priority 1 Stat Priority 1: No - Urgent/Priority 2 Urgent Priority 2: No - Prompt/Priority 3 Prompt Priority 3: Yes Criteria Met for Priority 3: 40 weeks, irregular contractions,pt. refusing cervical check tenant selector to collect amnisure swab, pt. swabbed herself in periarea. amnisure negative Disposition - Disposition OB Disposition: Discharge to home Discharge Date: 03/07/25 Discharge Time: 06:03 I agree with the RN Medical Screening Exam: Yes Physician's MSE Comment: I have neither seen nor examined the patient Case reviewed; plan agreed upon as documented in EMR&OBIX.: Yes Diagnosis: RELATED CONDITIONS, UNSPECIFIED, THIRD TRIMESTER
== END 2025-03-07 06:03 | disposition home or self-care (01) ==
LOC: FBPOP 04:50
PROVIDERS: ATTEND Obstetrics & Gynecology
DX: O26.893 Other specified pregnancy related conditions, third trimester (principal); Z88.8 Allergy status to other drugs, medicaments and biological substances; Z3A.40 40 weeks gestation of pregnancy
CPT/HCPCS: 59025; 84112; 99213